=== PATIENT | male | born 1940 | race Caucasian/White ===

== ENCOUNTER 2022-03-04 12:25 | Outpatient (CLI) | payer MEDICARE, BC ==
[2022-03-04 14:14] LABS: Hemoglobin 14.5 g/dL (13.5-17.5); Mean Corpuscular Hemoglobin 31.2 pg (27.0-33.0); Mean Corpuscular Volume 94.4 fl (81.2-95.1); Mean Platelet Volume 12.5 fl (7.4-10.4); Platelet Count 120 10x3/uL (150-450); RBC Distribution Width 14.8 % (11.5-14.5); Red Blood Cell (RBC) Count 4.65 10x6/uL (4.32-5.72); White Blood Cell (WBC) Count 7.2 10x3/uL (3.5-10.5)
[2022-03-04 14:17] LABS: Anion Gap 13 mmol/L (10-20); BUN (Urea Nitrogen) 19 mg/dL (8.4-25.7); Bilirubin Neg (Negative); Blood, Urine 50 (Negative); Calc. Creatinine Clearance 0 mL/min (70-130); Calcium 9.2 mg/dL (7.8-10.44); Carbon Dioxide 28 mmol/L (23-31); Chloride 105 mmol/L (98-107); Clarity Slightly Cloudy (Clear); Glucose 76 mg/dL (83-110); Glucose, Urine (Dipstick) Normal (Negative); Ketone, Urine Negative (Negative); Leukocyte 500 (Negative); Nitrite Negative (Negative); Potassium 4.1 mmol/L (3.5-5.1); Protein, Urine (Dipstick) 30 mg/dl (Neg-Trace); Sodium 142 mmol/L (136-145); Specific Gravity, Urine 1.015 (1.002-1.036); Urobilinogen Normal mg/dL (Less than 2)
[2022-03-04 14:35] LABS: WBC/HPF 21-50 HPF (0-3)
[2022-03-04 14:36] LABS: Squamous Epithelial 0-3 HPF (0-3)
[2022-03-04 14:37] LABS: Bacteria/HPF 3+ HPF (None Seen)
== END 2022-03-04 12:26 | disposition home or self-care (01) ==
LOC: LABBT 12:25
PROVIDERS: ATTEND Urology
DX: Z01.818 Encounter for other preprocedural examination (principal); N20.0 Calculus of kidney; N40.1 Benign prostatic hyperplasia with lower urinary tract symptoms; N32.3 Diverticulum of bladder; N30.20 Other chronic cystitis without hematuria; Z20.822 Contact with and (suspected) exposure to COVID-19
CPT/HCPCS: 80048; 81001; 85027; 87086; 93005; U0003; U0005; 93010

== ENCOUNTER 2022-03-09 07:04 | Day surgery (SDC) | payer MEDICARE, BC ==
[2022-03-08 08:59] VITALS: BMI 22.4
[2022-03-09] MEDS ORDERED: Fentanyl 100 MCG/2 ML VIAL ONE (08:48)
[2022-03-09] MEDS ORDERED: Levofloxacin 500 mg/D5W 100 ml Premix Bag ONE (08:54)
[2022-03-09] MEDS ORDERED: Lidocaine 1% PF 5 ML VIAL ONE (09:02)
[2022-03-09] MEDS ORDERED: Dexamethasone 20 MG/5 ML VIAL ONE (09:02)
[2022-03-09] MEDS ORDERED: PROPOFOL 200 MG/20 ML VIAL ONE (09:02)
[2022-03-09] MEDS ORDERED: Ondansetron PF 4 MG/2 ML Vial ONE (09:02)
[2022-03-09] MEDS ORDERED: ePHEDrine 50 MG/ML VIAL ONE (09:02)
[2022-03-09] MEDS ORDERED: Oxybutynin 5 MG TAB ONE (10:04)
[2022-03-09] MEDS ORDERED: Ketorolac Tromethamine 30 MG/ML VIAL ONE (10:04)
[2022-03-09] MEDS ORDERED: Phenazopyridine HCl 100 MG TAB ONE (10:05)
== END 2022-03-09 14:45 | disposition home or self-care (01) ==
LOC: SDC 07:04
PROVIDERS: ATTEND Urology
PROC: 0TC38ZZ Extirpation of Matter from Right Kidney Pelvis, Via Natural or Artificial Opening Endoscopic (ICD-10-PCS; principal; 2022-03-09)
PROC: 0T768DZ Dilation of Right Ureter with Intraluminal Device, Via Natural or Artificial Opening Endoscopic (ICD-10-PCS; 2022-03-09)
PROC: 0T7D8DZ Dilation of Urethra with Intraluminal Device, Via Natural or Artificial Opening Endoscopic (ICD-10-PCS; 2022-03-09)
DX: N40.1 Benign prostatic hyperplasia with lower urinary tract symptoms (principal); N20.0 Calculus of kidney; N32.3 Diverticulum of bladder; E03.9 Hypothyroidism, unspecified; K21.9 Gastro-esophageal reflux disease without esophagitis; M06.9 Rheumatoid arthritis, unspecified; G25.0 Essential tremor; Z87.891 Personal history of nicotine dependence; Z79.82 Long term (current) use of aspirin; Z79.890 Hormone replacement therapy; Z79.899 Other long term (current) drug therapy
CPT/HCPCS: 52356; 74420; C2617; C9740; L8699; J1100; J1885; J1956; J2405; J2704; J3010; J3490

== ENCOUNTER 2022-07-01 11:00 | Outpatient (CLI) | payer MEDICARE, BC | END 2022-07-01 11:01 | disposition home or self-care (01) | LOC: PET 11:00 | PROVIDERS: ATTEND Psychiatry & Neurology Neurology | DX: R41.3 Other amnesia (principal) | CPT/HCPCS: 78803; A9552 ==